=== PATIENT | male | born 1955 | race Caucasian/White ===

== ENCOUNTER → 2023-10-11 10:48 | Outpatient (REF) | payer OTHER, SELFPAY | LOC: DHCBC/DCA 10:48 | PROVIDERS: ATTENDING PHYSICIAN Internal Medicine; FAMILY PHYSICIAN Nurse Practitioner | DX: I25.10 Atherosclerotic heart disease of native coronary artery without angina pectoris (principal); E66.9 Obesity, unspecified | CPT/HCPCS: 78452; 93017; A9500; J2785 ==

== ENCOUNTER → 2023-10-22 15:46 | Outpatient (REF) | payer OTHER, SELFPAY | LOC: HWRCS 15:46 | PROVIDERS: ATTENDING PHYSICIAN Internal Medicine; FAMILY PHYSICIAN Nurse Practitioner | DX: I25.10 Atherosclerotic heart disease of native coronary artery without angina pectoris (principal); I77.810 Thoracic aortic ectasia | CPT/HCPCS: 93306 ==

== ENCOUNTER 2024-11-29 19:16 | Emergency (ER) | payer OTHER, SELFPAY ==
[2024-11-29 19:18] VITALS: BP 130/90
[2024-11-29 19:38] VITALS: BMI 32.1
[2024-11-29] MEDS: ROXICODONE 5 MG PO (21:02)
[2024-11-29 21:12] VITALS: BP 132/88
--- NOTE | 2024-11-29 22:45 | ED.MUSCINJ ---
HPI-Injury
General
Chief Complaint: Musculo-Skeletal Complaint
Source: patient
Exam Limitations: none
Time Seen by Provider: 11/29/24 20:18
Nursing documentation reviewed up to this point in time: agreed with
History of Present Illness-Injury
Is this injury a work related problem?: No
Is pt an associate of [facility]/[place]?: No
Initial Injury comments:
Patient to ED with complaint of right hand pain and swelling. States he was doing yardwork on ., Saturday he noted pain. Pain is located along thumb, 1st metacarpal, medial wrist. Denies fever/chillls, recent illness. To ED accompanined by
spouse.
Past History
Past History
ED Past Medical History: None
ED Past Surgical History: None
Social History
Living: with family
Review of Systems
Review of Systems
Allergies reviewed?: Yes
All Other Systems: ROS reviewed and negative except as documented in HPI and ROS
Constitutional: Reports no symptoms
Respiratory: Reports no symptoms
Cardiac: Reports no symptoms
ABD/GI: Reports no symptoms
: Reports no symptoms
Musculoskeletal: Reports joint pain (pain to right hand)
Skin: Reports no symptoms
Neurological: Reports no symptoms
Psychiatric: Reports no symptoms
Musculoskeletal Injury Exam
Musculoskeletal Injury Exam
Right Hand:
Pain with Movement?: Moderate
Tender to palpation?: Moderate
Soft tissue swelling?: Moderate
External deformity and angulation?: None
Joint effusion?: None
Contusion?: None
Hematoma-local bleeding into tissue?: None
Strain- Sprain- Tear (Connective tissue injury)?: Moderate
Crepitus with movement?: No
Joint instability?: No
Malalignment/deformity?: No
Range of motion: Limited
Distal skin color and temperature: normal-warm & good color
Capillary Refill: normal
Normal distal neurovascular exam?: Yes
Peripheral Pulses: radial (right): 3+
Phy Exam
General Physical Exam
General Presentation: moderate distress
General age: appears stated age
General Skin: warm and dry
General Habitus: normal
General Mental: alert
Musculoskeletal Exam
Musculoskeletal Exam: neuro vasc intact and other (Pain and swelling to right hand and wrist. Pain along dorsal right thumb into right medial wrist consistent with tendonitis. Will place in thumb spica splint and sling. He will continue to ice.
Given short course of pain meds. WIll follow up with PCP. No s/s cellulitis. There are no wounds.)
Skin Exam
Skin Exam: normal color, warm/dry and no rash
Psychiatric Exam
Psychiatric Exam: normal mood/affect
Injury Course
Orders/Labs/Results
Orders:
Orders
11/29/24 19:44
Wrist, Right 3 Views [CR Wrist - Right Min 3 Views] Urgent
Comment:
Reason For Exam: pain/swelling
11/29/24 20:48
Sling Right-Treatment ONCE
Thumb Spica Right-Treatment ONCE
Oxycodone [Roxicodone] 5 mg PO NOW STA
*Radiology
Radiology exam reviewed: radiology read reviewed
*Pulse Oximetry
SaO2: 99
Oxygen Mode of Delivery: Room air
Patient hypoxic: no
*Critical Care Note
Total Time (30-74mins, 75-104mins- exclusive of procedures): Not Applicable
ED Attending Note
-
Portions of this chart may have been created with voice recognition software.� Occasional wrong word or��sound alike� substitutions may have occurred due to the inherent limitations of voice recognition software.
Discharge Plan
Departure
Patient Disposition: Home (Routine Discharge)
Date of Disposition: 11/29/24
Time of Disposition: 20:48
Patient with high blood pressure during this ER visit?: No
Condition: Good
Covid-19: Not Applicable
Discharge Problem:
Right hand tendonitis
Instructions: Using Cold for Pain, Muscle, joint, and bone pain - Discharge instructions
Prescriptions:
New
oxycodone 5 mg capsule
5 mg PO Q4H PRN (Reason: Pain) Qty: 14 0RF
No Action
multivitamin [Multi-Day] 1 EACH tablet
1 tab PO DAILY
aspirin 81 MG tablet,delayed release (DR/EC)
81 mg PO DAILY
rosuvastatin 10 MG tablet
20 mg PO HS
valsartan-hydrochlorothiazide 1 EACH tablet
1 tab PO DAILY
Referrals:
Sergey Mcmullen MD [Active, Orthopedics] - Call in 1-3 days for appt
Ronald Saba CRNP [Family Provider]
Interventions
Interventions:
*Risk Screen - Suicide Last Done: 11/29/24 19:18
*General Assessment Last Done: 11/29/24 19:38
*Neglect/Abuse Screening Last Done: 11/29/24 19:18
*ED- Fall Risk Assessment Last Done: 11/29/24 19:38
*ED COVID-19 Vaccine History Last Done: 11/29/24 19:38
*Nursing Disposition Last Done: 11/29/24 21:12
ED-Musculoskeletal Assessment Last Done: 11/29/24 19:45
Discharge Date and Time
Discharge Date/Time: 11/29/24 21:13
Print Language: SWEDISH
== END 2024-11-29 21:13 | disposition home or self-care (01) ==
LOC: EMR 19:16
PROVIDERS: EMERGENCY PHYSICIAN Emergency Medicine
DX: M77.8 Other enthesopathies, not elsewhere classified (principal); M79.641 Pain in right hand; M79.89 Other specified soft tissue disorders; I10 Essential (primary) hypertension; E78.5 Hyperlipidemia, unspecified; M19.90 Unspecified osteoarthritis, unspecified site; Z79.82 Long term (current) use of aspirin; Z87.891 Personal history of nicotine dependence
CPT/HCPCS: 99283; 29125; 73110

== ENCOUNTER → 2025-01-26 10:52 | Outpatient (REF) | payer OTHER, SELFPAY | LOC: RAD 10:52 | PROVIDERS: ATTENDING PHYSICIAN Radiology Diagnostic Radiology | DX: Z13.89 Encounter for screening for other disorder (principal) | CPT/HCPCS: 70030 ==

== ENCOUNTER → 2025-02-08 12:53 | Outpatient (REF) | payer OTHER, SELFPAY | LOC: PAVMRI 12:53 | PROVIDERS: ATTENDING PHYSICIAN Orthopaedic Surgery | DX: M25.431 Effusion, right wrist (principal); M25.531 Pain in right wrist | CPT/HCPCS: 73221 ==